=== PATIENT | female | born 1970 | race American Indian/Alaskan Native ===

== ENCOUNTER 2017-01-19 12:05 | Outpatient (CLI) | payer MEDICAID ==
--- NOTE | 2017-01-19 13:39 | Mammography Report ---
Bilateral mammogram and bilateral breast ultrasound: The patient presents with a palpable lump in her left breast. The patient is unable to feel the lump today and therefore no marker placed. Routine views were obtained. There is a relatively discrete mass measuring 3 cm in the upper outer left breast adjacent to a smaller somewhat less discretely identified mass measuring 2.2 cm. In the central right breast there appears to be a circumscribed mass measuring 18 mm. The breast pattern otherwise is heterogeneously dense bilaterally with no other focal findings. No recent prior exams for comparison. Global bilateral ultrasound demonstrates 5 circumscribed echolucent masses in the right breast the largest measuring 15 mm and the other is 1 cm or less in size. Imaging of the left breast demonstrates 4 circumscribed echolucent masses the largest located in the retroareolar location measuring 3.1 cm. There is a 2.1 cm adjacent mass and 2 sub-centimeter masses. No solid masses identified in either breast. CAD used. Impression: Bilateral breast cysts. The palpable lesion on the left corresponds to the largest cyst. Recommendation: Clinical followup and annual mammogram followup. BI-RADS CATEGORY: 2 = Benign ACR BI-RADS MAMMOGRAPHIC CODES: 0 = Needs additional imaging evaluation; 1 = Negative; 2 = Benign; 3 = Probably benign; 4 = Suspicious; 5 = Malignant; 6 = Known biopsy-proven malignancy COMMENT: 1. Dense breast tissue, i.e., adenosis, fibrocystic changes, etc., may obscure an underlying neoplasm. 2. Approximately 10% of cancers are not detected with mammography. 3. A negative mammography report should not delay biopsy if a clinically suspicious mass is present.
== END 2017-01-19 12:06 | disposition home or self-care (01) ==
LOC: SPVWC 12:05
PROVIDERS: ATTEND Nurse Practitioner Gerontology
DX: N60.02 Solitary cyst of left breast (principal); N60.01 Solitary cyst of right breast; N63 Unspecified lump in breast; Z80.3 Family history of malignant neoplasm of breast
CPT/HCPCS: 76641; G0204; 77066